=== PATIENT | male | born 1960 | race Caucasian/White ===

== ENCOUNTER → 2017-09-27 | Outpatient (CLI) | payer OTHER ==
[~2017-09-27] MED LIST: ASPI81TA21 PO; ATOR10TA82 PO; FISHOIL PO; GADAVIST IV PRN; Garlic PO; METO50TA8 PO; PANT40TA PO; PROBIOTIC PO; TAMS0.4C59 PO
--- NOTE | 2017-09-27 14:22 | DIAGNOSTIC IMAGING REPORT ---
MRA CHST SUBCLAV ANGIO COMBO CLINICAL HISTORY: ANEURYSM OF THORACIC AORTA aneurysm TECHNIQUE: MRI multi axial acquisition COMPARISON STUDY: 12/27/2011 FINDINGS: Interval median sternotomy and aortic valve replacement. Interval repair of the aneurysm of the a sending thoracic aorta. Accident current dimension is 3.3 cm diminished from the prior study of 4.4 cm. All remaining components of the thoracic aorta are negative for aneurysm or dissection. No evidence for cardiac enlargement. All remaining great vessels originating from the aortic arch are unremarkable. IMPRESSION: 1. Interval median sternotomy, aortic valve repair, as well as repair of the aneurysm of the aortic root. 2. No current evidence for aneurysm or dissection. 3. Maximum current diameter of the aortic root is 3.3 cm. The above report was generated using voice recognition software. It may contain grammatical, syntax or spelling errors. Electronically signed by: Jerman Gonzáles M.D. 09/27/2017 2:20 PM Dictated Date/Time: 09/27/2017 2:14 PM
== END | disposition home or self-care (01) ==
LOC: C.MRI 12:56
PROVIDERS: ATTEND Internal Medicine Cardiovascular Disease
DX: I71.2 Thoracic aortic aneurysm, without rupture (principal)

== ENCOUNTER 2023-11-24 05:59 | Inpatient (IN) ==
[2023-11-24] MEDS ORDERED: VANCOMYCIN CONSULT ACTIVE PRN ×2 (06:21→14:11)
[2023-11-24] MEDS: cefTRIAXone SODIUM 2,000 MG/50 ML BAG IV STA (06:30)
[2023-11-24 06:54] LABS: Basophils # (auto) 0.01 K/uL (0.00-0.20); Basophils % (auto) 0.2 %; Eosinophils # (auto) 0.04 K/uL (0.00-0.50); Eosinophils % (auto) 0.8 %; Hematocrit (blood only) 33.2 % (42.0-52.0); Hemoglobin 11.5 g/dl (14.0-18.0); Immature Granulocytes # (auto) 0.02 K/uL (0.01-0.20); Immature Granulocytes % (auto) 0.4 %; Lymphocytes # (auto) 0.82 K/uL (1.20-3.40); Lymphocytes % (auto) 16.3 %; Mean Corpuscular Hemoglobin 31.8 pg (25.0-34.0); Mean Corpuscular Hgb Conc 34.6 g/dL (32.0-36.0); Mean Corpuscular Volume 91.7 fL (80.0-100.0); Monocytes # (auto) 0.46 K/uL (0.11-0.59); Monocytes % (auto) 9.2 %; Neutrophils # (auto) 3.67 K/uL (1.40-6.50); Neutrophils % (auto) 73.1 %; Platelet Count 93 K/uL (130-400); RDW Coefficient of Variation 13.1 % (11.5-14.5); RDW Standard Deviation 44.4 fL (36.4-46.3); Red Blood Count 3.62 M/uL (4.70-6.10); White Blood Count 5.02 K/ul (4.8-10.8)
[2023-11-24 07:13] LABS: Albumin Globulin Ratio 1.7 (0.9-2); Albumin Level 3.8 gm/dl (3.4-5.0); BUN Creatinine Ratio 24.7 (10-20); Bilirubin,Total 1.6 mg/dl (0.2-1.0); Calcium 8.5 mg/dl (8.6-10.3); Creatinine Clr Calc Pharmacy 119.2 ml/min; Est GFR (African American) 109.6 ml/min; Est GFR (Non-African American) 94.6 ml/min; Globulin 2.3 gm/dl (2.5-4.0); Magnesium 1.5 mg/dl (1.7-2.4); Potassium 3.9 mmol/L (3.5-5.1); Total Protein 6.1 gm/dl (6.0-8.3)
--- NOTE | 2023-11-24 07:15 | XRay Report ---
XR chest 1V portable HISTORY: 63 years-old Male Chest pain, nonspecific COMPARISON: Chest radiograph 05/08/2023, chest CT 11/16/2023. TECHNIQUE: AP view of the chest FINDINGS: Cardiac silhouette is enlarged. Median sternotomy. Trace pleural effusion suggested. No pneumothorax. Pulmonary vascular congestion. Mild ill-defined patchy right lung airspace opacities. Bones appear g rossly intact. IMPRESSION: 1. Cardiomegaly with pulmonary vascular congestion. 2. Mild ill-defined right lung airspace opacities may represent asymmetric pulmonary edema versus mul tifocal pneumonia. 3. Trace pleural effusions. ACT 112: Negative or not required by law. The above report was generated using voice recognition software. It may contain grammatical, syntax o r spelling errors. Electronically signed by: Mehul Marcus M.D. 11/24/2023 7:14 AM
[2023-11-24 07:19] LABS: Troponin I High Sensitivity 44.7 pg/ml (0-20)
[2023-11-24] MEDS: VANCOMYCIN HCL 2,500 MG in SODIUM CHLORIDE 0.9% 500 ML IV ONE (07:19)
--- NOTE | 2023-11-24 07:33 | Emergency Department Note ---
Impression & Plan Bacteremia, Endocarditis ED Provider Note NAME: CHANELL FROST AGE: 63 SEX: M : 1960 ARRIVES VIA: Walk-In INFORMANT: Patient, ED PROVIDER(S): Jose Ashton MD CHIEF COMPLAINT: Positive blood cultures HPI: This is a 63-year-old male with history of bioprosthetic aortic valve, aortic stenosis, CHF, repaired ascending aortic aneurysm presenting for positive blood cultures. Patient recently followed with the [facility] with Dr. Stevens, cardiology, who requested blood cultures prior to aortic valve repair/replacement procedure to be done in the next couple weeks as per family. These blood cultures were positive as of yesterday and patient was advised to come to the ER by patient care associate, Dr. Farrell. Patient does note he feels weaker than usual, having occasional chills, no recorded fevers. He is stating that he is very active usually and this is different for him. He does note he recently can diagnosis CHF that his Lasix have not helping him. Patient have dental procedure recently with preoperative antibiotics. ROS: See above HPI for pertinent positives & negatives. A total of 10 systems reviewed and were otherwise negative. PHYSICAL EXAMINATION: General: resting comfortably in no acute distress Head: Normocephalic and atraumatic Eyes: Normal inspection, extraocular muscles intact Ear, nose, throat: Normal external exam Neck: Normal range of motion Respiratory: lungs clear to auscultation bilaterally Cardiovascular: Regular rate/rhythm, holosystolic murmur GI: soft, nontender, no guarding or rebound Extremities: nontender, moves all extremities Neuro: The patient awake and alert, appropriately conversive, no focal deficits, symmetric faces Skin: Warm, dry, and intact MEDICAL DECISION MAKING: This is a 63-year-old male history of bioprosthetic aortic valve, no stenosis, CHF presenting for blood cultures that are positive. Consider sepsis as well as endocarditis clinically as patient has severe aortic stenosis with bioprosthetic valve. Patient had recent dental procedure as well. -Blood work is reviewed showed no leukocytosis. No left disturbances. He does have a slight AST elevation greater than ALT elevation, troponin is elevated at 44. Pro-James is elevated at 2.87. -Otherwise patient already given broad-spectrum antibiotics, Vanco and Zosyn. -Discussed care with [facility], Dr Hill, who accepts the patient to his service for suspected bacteremia concerning for endocarditis with positive blood cultures -Currently there is no available bed at this facility and waiting on inpatient discharges prior to bed assignment. In addition this hospital is about a 4- hour/[address] by car making transportation likely fairly difficult -Discussed care with on-call hospitalist, Dr. Carranza who will admit the patient until bed/transportation to be arranged -Dr. Farrell was here who saw the patient at bedside and also spoke with patient's cardiology, Dr. Stevens who again reiterated need for patient to be at [facility]. Differential diagnosis: Bacteremia, endocarditis, viral pressure infection, pneumonia, CHF, PE ER treatment provided: See below Diagnostics interpreted by me: ECG: ECG independently interpreted by me with normal sinus rhythm, rate of 65, left axis deviation, normal [place],] manage blood, normal QTc, no ST segment elevations consistent with STEMI criteria Cardiac Monitoring: An order was placed for continuous cardiac monitoring. The monitor shows a rate of 57 with sinus rhythm. Laboratory studies: As stated above and show below. Imaging studies: See below. Past Med/Surg History Problem List (Updated 11/24/23 @ 14:10 by Jose Ashton MD) Endocarditis (Acute) Bacteremia (Acute) Elevated troponin Hypomagnesemia Multifocal pneumonia Streptococcal bacteremia Aneurysm of thoracic aorta REPAIR 2012 Heart failure due to valvular disease Aortic regurgitation Hematuria Hepatic steatosis Bladder outlet obstruction Abdominal pain SOB (shortness of breath) Dyspnea and respiratory abnormalities Anemia High grade dysplasia in colonic adenoma High grade dysplasia in colonic adenoma Decreased exercise tolerance Encounter for pre-operative examination Impaired glucose metabolism Rosacea Left ventricular hypertrophy Right bundle branch block Restless leg syndrome GERD (gastroesophageal reflux disease) Erectile dysfunction Aortic valve replaced (Chronic) Severe aortic stenosis Bradycardia H/O heart valve replacement with bioprosthetic valve S/P ascending aortic replacement 2013 Mitral regurgitation (Acute) Dyslipidemia Enlarged prostate with lower urinary tract symptoms (LUTS) (Acute) Hypertension Paroxysmal supraventricular tachycardia by electrocardiogram (ECG) (Acute) Patent foramen ovale (Acute) Medical History (Updated 11/24/23 @ 14:10 by Jose Ashton MD) On anticoagulant therapy eliquis bid History of COVID-2021--mild symptoms, no symptoms now Atrial fibrillation on eliquis/metoprolol--Dr. Bud Colon cancer screening Restless leg syndrome Leukopenia PCP MONITORING Allergic rhinitis Acid reflux Left rotator cuff tear hx Paroxysmal ventricular tachycardia Surgical History H/O colonoscopy with polypectomy History of cardiac cath 07/2012 @ [facility] prior to AVR History of esophagogastroduodenoscopy (EGD) [place] teeth removed S/P tonsillectomy H/O cystoscopy S/P LASIK surgery Family History Mother , age 78 Dementia Hypertension Parkinson disease Gallbladder disease Uncle Prostate cancer Brother Stomach cancer esophageal Brother , age 55 Tongue cancer Alcohol abuse Uncle Colorectal cancer Father , age 61 post gallbladder surgery Gallbladder disease Sister Aortic dissection Other No family history of adverse response to anesthesia Denies family history of Myocardial infarction Breast cancer Social History Smoking Status: Never smoker Second Hand Exposure: Yes ( A CHILD); Do You Dip or Chew Tobacco: No; Hx Alcohol Use: Yes Alcohol type: beer Alcohol Intake Frequency: Monthly or Less Alcohol Intake Frequency Comment: 1-2 times a week Hx Substance Use: No Preferred Language: Icelandic Communication Ability: Effective Visual Impairment: Limited Hearing Ability: Normal Fish Liver Sorter Required: No Beliefs That Will Affect Care: None marital status: Current Living Situation: Spouse current occupational status: retired 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 How many Children do You have: 0 Feels Safe at Home: Yes Childhood Exposure to Second-Hand Smoke: Yes Diet: low carbohydrate caffeine: Yes Dental Care, Regularly: Yes Physical Activity Frequency: 5-6 Times per Week Seatbelt Use: always Sunscreen Use: Yes (sometimes) Assistive Devices: Glasses Allergies Allergies Allergy/AdvReac Type Severity Reaction Status Date / Time No Known Allergies Allergy Verified 11/22/23 09:02 Home Meds Home Medications Medication Instructions Recorded Confirmed aspirin 81 mg tablet 81 mg PO QAM 02/11/19 11/24/23 Saccharomyces boulardii 250 mg 250 mg PO QAM 08/29/19 11/24/23 capsule (Daily Probiotic (S. boulardii)) cholecalciferol (vitamin D3) 25 25 mcg PO QAM 08/29/19 11/24/23 mcg (1,000 unit) capsule cyclobenzaprine 10 mg tablet 10 mg PO HS PRN Muscle Spasm 06/15/23 11/24/23 trazodone 50 mg tablet 50 mg PO DAILY PRN Pain 06/15/23 11/24/23 iron,carbonyl 65 mg-vitamin C 125 1 tab PO HS 11/01/23 11/24/23 mg tablet,delayed release (Vitron-C) finasteride 5 mg tablet 5 mg PO HS 11/06/23 11/24/23 Previous Rx's Medication Instructions Recorded sildenafil 100 mg tablet 100 mg PO UD PRN sexual activity 03/28/23 #20 tabs metoprolol succinate 50 mg 50 mg PO QAM #90 tabs 05/12/23 tablet,extended release 24 hr atorvastatin 10 mg tablet 10 mg PO HS #90 tabs 05/15/23 pantoprazole 40 mg tablet,delayed 40 mg PO QAM #90 tabs 05/15/23 release tamsulosin 0.4 mg capsule 0.4 mg PO QPM #90 caps 05/15/23 apixaban 5 mg tablet (Eliquis) 5 mg PO BID #60 tabs 11/02/23 furosemide 20 mg tablet 20 mg PO DAILY PRN #30 tabs 11/20/23 Results & Data (ED) Vital Signs Vital Signs - 24 hr 11/24/23 06:08 11/24/23 06:08 11/24/23 06:16 Temperature 36.8 C Temperature Source Oral Pulse Rate 65 67 66 Pulse Rate [Radial] Pulse Rate from SpO2 Sensor Respiratory Rate 29 H 23 Respiratory Effort / Characteristics Non-Labored Spontaneous Respiratory Depth Normal Respiratory Pattern Regular Blood Pressure 116/86 Blood Pressure [Left Arm] Blood Pressure Mean 96 Blood Pressure Mean [Left Arm] Pulse Oximetry 96 95 Oxygen Delivery Method Room Air Room Air Sepsis Recent Fever Within 48 Hours Yes Sepsis New/Unexplained Change in Mental Status No Sepsis Action Taken by Nursing No Action Required 11/24/23 06:33 11/24/23 06:50 11/24/23 07:00 Temperature 37.3 C Temperature Source Oral Pulse Rate 63 Pulse Rate [Radial] 63 62 Pulse Rate from SpO2 Sensor Respiratory Rate 20 18 22 Respiratory Effort / Characteristics Non-Labored Spontaneous Respiratory Depth Normal Respiratory Pattern Regular Blood Pressure Blood Pressure [Left Arm] 117/65 108/55 L Blood Pressure Mean Blood Pressure Mean [Left Arm] 82 72 Pulse Oximetry 95 94 Oxygen Delivery Method Room Air Room Air Sepsis Recent Fever Within 48 Hours Sepsis New/Unexplained Change in Mental Status Sepsis Action Taken by Nursing 11/24/23 07:00 11/24/23 07:10 11/24/23 07:10 Temperature Temperature Source Pulse Rate 62 Pulse Rate [Radial] Pulse Rate from SpO2 Sensor 62 Respiratory Rate 28 H Respiratory Effort / Characteristics Respiratory Depth Respiratory Pattern Blood Pressure 115/55 L 115/60 Blood Pressure [Left Arm] Blood Pressure Mean 80 70 Blood Pressure Mean [Left Arm] Pulse Oximetry 95 Oxygen Delivery Method Sepsis Recent Fever Within 48 Hours Sepsis New/Unexplained Change in Mental Status Sepsis Action Taken by Nursing 11/24/23 07:12 11/24/23 07:12 11/24/23 07:30 Temperature Temperature Source Pulse Rate 62 60 Pulse Rate [Radial] Pulse Rate from SpO2 Sensor 62 60 Respiratory Rate 29 H 23 Respiratory Effort / Characteristics Respiratory Depth Respiratory Pattern Blood Pressure 108/54 L Blood Pressure [Left Arm] Blood Pressure Mean 82 Blood Pressure Mean [Left Arm] Pulse Oximetry 96 96 Oxygen Delivery Method Sepsis Recent Fever Within 48 Hours Sepsis New/Unexplained Change in Mental Status Sepsis Action Taken by Nursing 11/24/23 08:00 11/24/23 08:00 11/24/23 08:07 Temperature Temperature Source Pulse Rate 61 64 Pulse Rate [Radial] 64 Pulse Rate from SpO2 Sensor 61 63 Respiratory Rate 15 21 30 H Respiratory Effort / Characteristics Non-Labored Spontaneous Respiratory Depth Normal Respiratory Pattern Blood Pressure Blood Pressure [Left Arm] 95/64 L Blood Pressure Mean Blood Pressure Mean [Left Arm] 74 Pulse Oximetry 93 92 96 Oxygen Delivery Method Room Air Sepsis Recent Fever Within 48 Hours Sepsis New/Unexplained Change in Mental Status Sepsis Action Taken by Nursing 11/24/23 08:07 11/24/23 08:30 11/24/23 08:30 Temperature Temperature Source Pulse Rate 61 Pulse Rate [Radial] Pulse Rate from SpO2 Sensor 62 Respiratory Rate 26 H Respiratory Effort / Characteristics Respiratory Depth Respiratory Pattern Blood Pressure 95/64 L 110/53 L Blood Pressure [Left Arm] Blood Pressure Mean 74 65 Blood Pressure Mean [Left Arm] Pulse Oximetry 96 Oxygen Delivery Method Sepsis Recent Fever Within 48 Hours Sepsis New/Unexplained Change in Mental Status Sepsis Action Taken by Nursing 11/24/23 09:00 11/24/23 09:00 11/24/23 09:30 Temperature Temperature Source Pulse Rate 62 63 Pulse Rate [Radial] Pulse Rate from SpO2 Sensor 63 61 Respiratory Rate 21 28 H Respiratory Effort / Characteristics Respiratory Depth Respiratory Pattern Blood Pressure 95/37 L 106/64 Blood Pressure [Left Arm] Blood Pressure Mean 51 78 Blood Pressure Mean [Left Arm] Pulse Oximetry 94 94 Oxygen Delivery Method Sepsis Recent Fever Within 48 Hours Sepsis New/Unexplained Change in Mental Status Sepsis Action Taken by Nursing 11/24/23 10:00 11/24/23 10:16 11/24/23 10:30 Temperature Temperature Source Pulse Rate 58 L 59 L Pulse Rate [Radial] Pulse Rate from SpO2 Sensor 58 L Respiratory Rate 27 H Respiratory Effort / Characteristics Respiratory Depth Respiratory Pattern Blood Pressure 100/54 L 103/48 L Blood Pressure [Left Arm] Blood Pressure Mean 69 59 Blood Pressure Mean [Left Arm] Pulse Oximetry 94 Oxygen Delivery Method Sepsis Recent Fever Within 48 Hours Sepsis New/Unexplained Change in Mental Status Sepsis Action Taken by Nursing 11/24/23 10:30 11/24/23 11:00 11/24/23 11:00 Temperature Temperature Source Pulse Rate 60 60 Pulse Rate [Radial] Pulse Rate from SpO2 Sensor 64 60 Respiratory Rate 24 33 H Respiratory Effort / Characteristics Respiratory Depth Respiratory Pattern Blood Pressure 112/59 L Blood Pressure [Left Arm] Blood Pressure Mean 72 Blood Pressure Mean [Left Arm] Pulse Oximetry 96 96 Oxygen Delivery Method Sepsis Recent Fever Within 48 Hours Sepsis New/Unexplained Change in Mental Status Sepsis Action Taken by Nursing 11/24/23 11:30 11/24/23 12:00 Temperature Temperature Source Pulse Rate 60 61 Pulse Rate [Radial] Pulse Rate from SpO2 Sensor 60 62 Respiratory Rate 27 H 24 Respiratory Effort / Characteristics Respiratory Depth Respiratory Pattern Blood Pressure 113/56 L 138/81 Blood Pressure [Left Arm] Blood Pressure Mean 75 100 Blood Pressure Mean [Left Arm] Pulse Oximetry 95 95 Oxygen Delivery Method Sepsis Recent Fever Within 48 Hours Sepsis New/Unexplained Change in Mental Status Sepsis Action Taken by Nursing Laboratory Data 11/24/23 06:15 11/24/23 06:15 Lab Results 11/24/23 11/24/23 11/24/23 Range/Units 06:15 06:56 07:49 WBC 5.02 (4.8-10.8) K/ul RBC 3.62 L (4.70-6.10) M/uL Hgb 11.5 L (14.0-18.0) g/dl Hct 33.2 L (42.0-52.0) % MCV 91.7 (80.0-100.0) fL MCH 31.8 (25.0-34.0) pg MCHC 34.6 (32.0-36.0) g/dL RDW Std Deviation 44.4 (36.4-46.3) fL RDW Coeff of Lizeth 13.1 (11.5-14.5) % Plt Count 93 L (130-400) K/uL Immature Gran % (Auto) 0.4 % Neut % (Auto) 73.1 % Lymph % (Auto) 16.3 % Gaston % (Auto) 9.2 % Eos % (Auto) 0.8 % Baso % (Auto) 0.2 % Neut # (Auto) 3.67 (1.40-6.50) K/uL Lymph # (Auto) 0.82 L (1.20-3.40) K/uL Gaston # (Auto) 0.46 (0.11-0.59) K/uL Eos # (Auto) 0.04 (0.00-0.50) K/uL Baso # (Auto) 0.01 (0.00-0.20) K/uL Immature Gran # (Auto) 0.02 (0.01-0.20) K/uL PT Cancelled 13.0 H INR Cancelled 1.2 H APTT Cancelled 31 PTT Ratio Cancelled 1.2 Sodium 135 L (136-145) mmol/L Potassium 3.9 (3.5-5.1) mmol/L Chloride 104 (98-107) mmol/L Carbon Dioxide 25 (21-32) mmol/L Anion Gap 6 (3-11) BUN 20 (6-23) mg/dl Creatinine 0.81 (0.6-1.4) mg/dl Est Cr Clr Drug Dosing 119.2 ml/min Est GFR ( Amer) 109.6 ml/min Est GFR (Non-Af Amer) 94.6 ml/min BUN/Creatinine Ratio 24.7 H (10-20) Glucose 103 H (70-99(Fasting)) mg/dl Lactate 0.7 (0.4-2.0) mmol/L Calcium 8.5 L (8.6-10.3) mg/dl Magnesium 1.5 L (1.7-2.4) mg/dl Total Bilirubin 1.6 H (0.2-1.0) mg/dl AST 72 H (13-39) U/L ALT 42 (7-52) U/L Alkaline Phosphatase 79 (34-104) U/L Troponin I High Sens 44.7 H (0-20) pg/ml Total Protein 6.1 (6.0-8.3) gm/dl Albumin 3.8 (3.4-5.0) gm/dl Globulin 2.3 L (2.5-4.0) gm/dl Albumin/Globulin Ratio 1.7 (0.9-2) Procalcitonin 2.87 H (0-0.5) ng/ml 11/24/23 Range/Units 09:37 WBC (4.8-10.8) K/ul RBC (4.70-6.10) M/uL Hgb (14.0-18.0) g/dl Hct (42.0-52.0) % MCV (80.0-100.0) fL MCH (25.0-34.0) pg MCHC (32.0-36.0) g/dL RDW Std Deviation (36.4-46.3) fL RDW Coeff of Lizeth (11.5-14.5) % Plt Count (130-400) K/uL Immature Gran % (Auto) % Neut % (Auto) % Lymph % (Auto) % Gaston % (Auto) % Eos % (Auto) % Baso % (Auto) % Neut # (Auto) (1.40-6.50) K/uL Lymph # (Auto) (1.20-3.40) K/uL Gaston # (Auto) (0.11-0.59) K/uL Eos # (Auto) (0.00-0.50) K/uL Baso # (Auto) (0.00-0.20) K/uL Immature Gran # (Auto) (0.01-0.20) K/uL PT INR APTT PTT Ratio Sodium (136-145) mmol/L Potassium (3.5-5.1) mmol/L Chloride (98-107) mmol/L Carbon Dioxide (21-32) mmol/L Anion Gap (3-11) BUN (6-23) mg/dl Creatinine (0.6-1.4) mg/dl Est Cr Clr Drug Dosing ml/min Est GFR ( Amer) ml/min Est GFR (Non-Af Amer) ml/min BUN/Creatinine Ratio (10-20) Glucose (70-99(Fasting)) mg/dl Lactate (0.4-2.0) mmol/L Calcium (8.6-10.3) mg/dl Magnesium (1.7-2.4) mg/dl Total Bilirubin (0.2-1.0) mg/dl AST (13-39) U/L ALT (7-52) U/L Alkaline Phosphatase (34-104) U/L Troponin I High Sens 41.1 H (0-20) pg/ml Total Protein (6.0-8.3) gm/dl Albumin (3.4-5.0) gm/dl Globulin (2.5-4.0) gm/dl Albumin/Globulin Ratio (0.9-2) Procalcitonin (0-0.5) ng/ml Administered Medications Magnesium Sulfate/Dextrose (Magnesium Sulfate / D5w) 1 gm in 100 mls @ 50 mls/hr IV Q2H JANET Stop: 11/24/23 17:14 Last Admin: 11/24/23 13:22 Dose: 50 mls/hr Documented By: MR Discontinued Medications Apixaban (Apixaban 5 Mg Tablet) 5 mg PO NOW ONE Stop: 11/24/23 12:40 Last Admin: 11/24/23 13:22 Dose: 5 mg Documented By: MR Aspirin (Aspirin 81 Mg Ectab) 81 mg PO NOW STA Stop: 11/24/23 12:39 Last Admin: 11/24/23 13:18 Dose: 81 mg Documented By: MR Vancomycin HCl 2,500 mg/ (Sodium Chloride) 550 mls @ 200 mls/hr IV NOW ONE Stop: 11/24/23 09:05 Last Infusion: 11/24/23 10:11 Dose: Infused Documented By: Admin: 11/24/23 07:19 Dose: 200 mls/hr Documented By: KHLOE Ceftriaxone Sodium (Rocephin) 2,000 mg in 50 mls @ 100 mls/hr IV NOW STA Stop: 11/24/23 06:50 Last Infusion: 11/24/23 06:53 Dose: Infused Documented By: Admin: 11/24/23 06:30 Dose: 100 mls/hr Documented By: [facility] Parenteral Electrolytes (Plasma-Lyte A Ph 7.4) 500 mls @ 999 mls/hr IV .Q31M ONE Stop: 11/24/23 13:26 Last Admin: 11/24/23 13:17 Dose: 999 mls/hr Documented By: MR Metoprolol Succinate (Metoprolol Succ 50mg Ext Rel Tab) 50 mg PO NOW STA Stop: 11/24/23 12:39 Last Admin: 11/24/23 13:47 Dose: Not Given Documented By: MES Metoprolol Succinate (Metoprolol Succ 50mg Ext Rel Tab) 25 mg PO NOW STA Stop: 11/24/23 12:46 Last Admin: 11/24/23 13:46 Dose: Not Given Documented By: MES Pantoprazole Sodium (Pantoprazole 40 Mg Tab) 40 mg PO NOW ONE Stop: 11/24/23 12:39 Last Admin: 11/24/23 13:18 Dose: 40 mg Documented By: MR Imaging Data Radiologist's Impression: Chest X-Ray 11/24/23 06:11 XR chest 1V portable HISTORY: 63 years-old Male Chest pain, nonspecific COMPARISON: Chest radiograph 05/08/2023, chest CT 11/16/2023. TECHNIQUE: AP view of the chest FINDINGS: Cardiac silhouette is enlarged. Median sternotomy. Trace pleural effusion suggested. No pneumothorax. Pulmonary vascular congestion. Mild ill-defined patchy right lung airspace opacities. Bones appear grossly intact. IMPRESSION: 1. Cardiomegaly with pulmonary vascular congestion. 2. Mild ill-defined right lung airspace opacities may represent asymmetric pulmonary edema versus multifocal pneumonia. 3. Trace pleural effusions. ACT 112: Negative or not required by law. The above report was generated using voice recognition software. It may contain grammatical, syntax or spelling errors. Electronically signed by: Mehul Marcus M.D. 11/24/2023 7:14 AM Discharge Plan Visit Data Chief Complaint: Cardiac Assessment Stated Complaint: CHILLS,SWEATY,LOW ENERGY,DOC REFER ED Provider: Jose Ashton Discharge Problem: Bacteremia, Endocarditis Patient Disposition: Admitted As Inpatient Discharge Instructions Interventions: ED Discharge Assessment Last Done: 11/24/23 13:45
[2023-11-24 08:28] LABS: INR 1.2 (0.9-1.1); Partial Thromboplastin Ratio 1.2; Partial Thromboplastin Time 31 Seconds (21-31)
--- NOTE | 2023-11-24 12:06 | History & Physical Report ---
Date of Service November 24, 2023 Assessment & Plan (1) Streptococcal bacteremia: Plan: Patient advised to come in by OR cardiology after positive blood cultures for (+) blood culture identifying gram-positive cocci in chains at 11/23 HX of AVR s/p bioprosthetic valve Patient is awaiting transfer to [facility] where he is seen by Dr. Stevens (Cardiology) No prior infection of his prostatic valve, or endocarditis Patient does report he had a dental cleaning on 11/14; pretreated with amoxicillin, but significant bleeding due to recently being placed on Eliquis for A-fib No leukocytosis, but patient does report he fever and chills the evening of 11/22 Lactate WNL; procalcitonin positive at 2.87 Vancomycin + ceftriaxone Continue vancomycin for enterococcus faecalis 500 cc IV bolus of Plasma-Lyte given due to hypotension in the ED; will defer further fluids as patient does exhibit heart failure due to valvular disease Acetaminophen as needed for pain/fever A.m. CBC, BMP, mag (2) Multifocal pneumonia: Plan: Clinically, patient endorses dry cough and fatigue CXR did reveal airspace opacities which could represent multifocal pneumonia Supplemental oxygen as needed to maintain SpO2 >94% Antibiotics (as above) (3) Heart failure due to valvular disease: Plan: Daily weights AHA, low-sodium diet Strict I&O monitoring (4) Anemia: Plan: Chronic; Hgb 11.5 on arrival No signs of active bleeding on clinical exam Continue to trend a.m. CBCs (5) Elevated troponin: Plan: Troponin 45--> 41 on arrival Clinically, patient denies chest pain/pressure or pleuritic CP, and is chest pain-free at time of admission Suspect demand ischemia over ACS Continuous telemetry monitoring (6) Hypomagnesemia: Plan: Mag 1.5 on arrival Magnesium sulfate 1gm x 2 Recheck am Mag (7) Aortic valve replaced: (8) Severe aortic stenosis: (9) H/O heart valve replacement with bioprosthetic valve: (10) S/P ascending aortic replacement: Plan Disposition: Admit to PCU telemetry Full code Awaiting transfer to [facility] AHA, low-sodium diet VTE PPx: On Eliquis History of Present Illness Chief Complaint: Cardiac Assessment Primary Care Provider: Bernabe Yanez MD Rodney is a 63-year-old male with PMH of AVR s/p bioprosthetic valve, HTN, dyslipidemia, GERD, restless leg syndrome, bladder outlet obstruction, hepatic steatosis, and heart failure due to valvular disease. He presented on 11/23 at the behest of metal or wood blocker Dr. Farrell for a positive blood culture drawn on 11/22. Patient endorses increased fatigue, SOB, and cough this past week. His SOB has been ongoing for 4 to 5 months, and is mainly with exertion, but more recently at rest as well. Patient is normally very active, but he noted that he could not push his lawnmower across the yard this week without stopping. He also endorses SOB when lying flat. He has had a dry cough this past week, but does have allergies and attributed to that. No hemoptysis, but some blood- tinged sneezing recently. Patient did not take his regular morning medications today; no recent change in medications, but he did take Lasix 20 mg 2 days ago for recent fluid buildup. Patient gained about 15 pounds in 2 days; he usually weighs about 220 to 225 pounds, but noticed weight gain, and believes it was secondary to heart failure in the setting of valvular disease (similar to past episode after his aortic aneurysm repair in 2012. No recent change in diet. Patient does not regularly eat foods with salts, but does not normally watch it for he drinks 1 cup of coffee per day. No prior history of bioprosthetic valve infection, endocarditis, AR, or DVT/PE. He was recently placed on Eliquis at the beginning of the month after a MACK for A-fib. Patient notes he did have a dental cleaning on 14 November. He had significant gum bleeding due to Eliquis, and had no prior dental cleanings on Eliquis. He did take amoxicillin prior to this dental cleaning. Patient denies smoking, alcohol use, recreational drug use, and IV drug use. ED coordinated transfer of patient with Dr. Stevens at [facility]. Patient is currently scheduled to be transferred to [facility], but is awaiting a bed. Patient is hypotensive at 100/54 and tachypneic at 27 RPM at time of admission. ED course: Vancomycin 2500 mg IV Rocephin 2000 g IV ROS: Patient endorses fever, chills, night-sweats, sinus congestion, mild MCCAIN, dry cough, SOB at rest and with exertion, orthopnea, nausea and vomiting (Monday night; resolved), intermittent diarrhea, and decreased urinary frequency (still producing urine). Patient denies chest pain, chest pressure, hemoptysis, dizziness, lightheadedness with walking/standing, hematemesis, change in urinary/bowel habits, burning with urination, blood in urine/stool, and numbness/tingling/swelling in arms or legs. Allergies Allergy/AdvReac Type Severity Reaction Status Date / Time No Known Allergies Allergy Verified 11/22/23 09:02 Home Medications Medication Instructions Recorded Confirmed Type aspirin 81 mg tablet 81 mg PO QAM 02/11/19 11/24/23 History Saccharomyces boulardii 250 mg 250 mg PO QAM 08/29/19 11/24/23 History capsule (Daily Probiotic (S. boulardii)) cholecalciferol (vitamin D3) 25 25 mcg PO QAM 08/29/19 11/24/23 History mcg (1,000 unit) capsule sildenafil 100 mg tablet 100 mg PO UD PRN sexual activity 03/28/23 11/24/23 Rx #20 tabs metoprolol succinate 50 mg 50 mg PO QAM #90 tabs 05/12/23 11/24/23 Rx tablet,extended release 24 hr atorvastatin 10 mg tablet 10 mg PO HS #90 tabs 05/15/23 11/24/23 Rx pantoprazole 40 mg tablet,delayed 40 mg PO QAM #90 tabs 05/15/23 11/24/23 Rx release tamsulosin 0.4 mg capsule 0.4 mg PO QPM #90 caps 05/15/23 11/24/23 Rx cyclobenzaprine 10 mg tablet 10 mg PO HS PRN Muscle Spasm 06/15/23 11/24/23 History trazodone 50 mg tablet 50 mg PO DAILY PRN Pain 06/15/23 11/24/23 History iron,carbonyl 65 mg-vitamin C 125 1 tab PO HS 11/01/23 11/24/23 History mg tablet,delayed release (Vitron-C) apixaban 5 mg tablet (Eliquis) 5 mg PO BID #60 tabs 11/02/23 11/24/23 Rx finasteride 5 mg tablet 5 mg PO HS 11/06/23 11/24/23 History furosemide 20 mg tablet 20 mg PO DAILY PRN #30 tabs 11/20/23 11/24/23 Rx Past Med/Surg History Problem List (Updated 11/24/23 @ 13:03 by Dominick France PA-C) Elevated troponin Hypomagnesemia Multifocal pneumonia Streptococcal bacteremia Aneurysm of thoracic aorta REPAIR 2012 Heart failure due to valvular disease Aortic regurgitation Hematuria Hepatic steatosis Bladder outlet obstruction Abdominal pain SOB (shortness of breath) Dyspnea and respiratory abnormalities Anemia High grade dysplasia in colonic adenoma High grade dysplasia in colonic adenoma Decreased exercise tolerance Encounter for pre-operative examination Impaired glucose metabolism Rosacea Left ventricular hypertrophy Right bundle branch block Restless leg syndrome GERD (gastroesophageal reflux disease) Erectile dysfunction Aortic valve replaced (Chronic) Severe aortic stenosis Bradycardia H/O heart valve replacement with bioprosthetic valve S/P ascending aortic replacement 2012 Mitral regurgitation (Acute) Dyslipidemia Enlarged prostate with lower urinary tract symptoms (LUTS) (Acute) Hypertension Paroxysmal supraventricular tachycardia by electrocardiogram (ECG) (Acute) Patent foramen ovale (Acute) Medical History (Updated 11/24/23 @ 13:03 by Dominick France PA-C) On anticoagulant therapy eliquis bid History of COVID-19 2021--mild symptoms, no symptoms now Atrial fibrillation on eliquis/metoprolol--Dr. Farrell Colon cancer screening Restless leg syndrome Leukopenia PCP MONITORING Allergic rhinitis Acid reflux Left rotator cuff tear hx Paroxysmal ventricular tachycardia Surgical History H/O colonoscopy with polypectomy History of cardiac cath 07/2012 @ [facility] prior to AVR History of esophagogastroduodenoscopy (EGD) [place] teeth removed S/P tonsillectomy H/O cystoscopy S/P LASIK surgery Family History Mother , age 78 Dementia Hypertension Parkinson disease Gallbladder disease Uncle Prostate cancer Brother Stomach cancer esophageal Brother , age 55 Tongue cancer Alcohol abuse Uncle Colorectal cancer Father , age 61 post gallbladder surgery Gallbladder disease Sister Aortic dissection Other No family history of adverse response to anesthesia Denies family history of Myocardial infarction Breast cancer Social History Smoking Status: Never smoker Second Hand Exposure: Yes ( A CHILD); Do You Dip or Chew Tobacco: No; Hx Alcohol Use: Yes Alcohol type: beer Alcohol Intake Frequency: Monthly or Less Alcohol Intake Frequency Comment: 1-2 times a week Hx Substance Use: No Preferred Language: Yoruba Communication Ability: Effective Visual Impairment: Limited Hearing Ability: Normal 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[employer] Sales Associate Required: No Beliefs That Will Affect Care: None marital status: Current Living Situation: Spouse current occupational status: retired 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 How many Children do You have: 0 Feels Safe at Home: Yes Childhood Exposure to Second-Hand Smoke: Yes Diet: low carbohydrate caffeine: Yes Dental Care, Regularly: Yes Physical Activity Frequency: 5-6 Times per Week Seatbelt Use: always Sunscreen Use: Yes (sometimes) Assistive Devices: Glasses Review of Systems Review of Systems: See HPI above Physical Exam Physical Exam: General: no acute distress; pleasant affect; non-toxic appearing; well- nourished; cooperative; SpO2 98% on room air HEENT: normocephalic, atraumatic; no scleral icterus; PERRLA w/ EOMs intact; moist mucus membrane; vision and hearing grossly intact Neck: supple; no lymphadenopathy; trachea midline Skin: warm, dry without signs of tenting; no cyanosis; no rashes, bruising, lesions, or erythema noted CV: chest wall NTP; RRR; S1/S2 normal; 4/6 systolic ejection murmur auscultated at the second ICS MCL; pulses intact and symmetric at radial, DP, and PT Lungs: no acute respiratory distress; symmetrical chest wall expansion; clear breath sounds across all lung beauchamp w/o adventitious sounds; no wheezing ABD: Soft, NTP; BS present; no rebound/guarding; no distention MSK: no tics or fasciculations; no edema noted in the LEs b/l, nonerythematous Neuro: A&Ox3; normal mood and affect; fluent speech; no focal deficits; sensation grossly intact in the LEs b/l Results & Data Results & Data Vital Signs (Past 12 Hours) Vital Signs Temp Pulse Pulse Resp BP BP Pulse Ox 11/24/23 10:16 59 L 11/24/23 10:00 58 L 27 H 100/54 L 94 11/24/23 09:30 63 28 H 106/64 94 11/24/23 09:00 62 21 94 11/24/23 09:00 95/37 L 11/24/23 08:30 110/53 L 11/24/23 08:30 61 26 H 96 11/24/23 08:07 95/64 L 11/24/23 08:07 64 30 H 96 11/24/23 08:00 61 21 92 11/24/23 08:00 64 15 95/64 L 93 11/24/23 07:30 60 23 96 11/24/23 07:12 62 29 H 96 11/24/23 07:12 108/54 L 11/24/23 07:10 62 28 H 95 11/24/23 07:10 115/60 11/24/23 07:00 115/55 L 11/24/23 07:00 63 22 11/24/23 06:50 37.3 C 62 18 108/55 L 94 11/24/23 06:33 63 20 117/65 95 11/24/23 06:16 66 23 95 11/24/23 06:08 67 11/24/23 06:08 36.8 C 65 29 H 116/86 96 O2 Del Method 11/24/23 10:16 11/24/23 10:00 11/24/23 09:30 11/24/23 09:00 11/24/23 09:00 11/24/23 08:30 11/24/23 08:30 11/24/23 08:07 11/24/23 08:07 11/24/23 08:00 11/24/23 08:00 Room Air 11/24/23 07:30 11/24/23 07:12 11/24/23 07:12 11/24/23 07:10 11/24/23 07:10 11/24/23 07:00 11/24/23 07:00 11/24/23 06:50 Room Air 11/24/23 06:33 Room Air 11/24/23 06:16 Room Air 11/24/23 06:08 11/24/23 06:08 Room Air Laboratory Results Abnormal lab results 11/24/23 11/24/23 11/24/23 Range/Units 06:15 07:49 09:37 RBC 3.62 L (4.70-6.10) M/uL Hgb 11.5 L (14.0-18.0) g/dl Hct 33.2 L (42.0-52.0) % Plt Count 93 L (130-400) K/uL Lymph # (Auto) 0.82 L (1.20-3.40) K/uL PT 13.0 H (9.0-12.0) Seconds INR 1.2 H (0.9-1.1) Sodium 135 L (136-145) mmol/L BUN/Creatinine Ratio 24.7 H (10-20) Glucose 103 H (70-99(Fasting)) mg/dl Calcium 8.5 L (8.6-10.3) mg/dl Magnesium 1.5 L (1.7-2.4) mg/dl Total Bilirubin 1.6 H (0.2-1.0) mg/dl AST 72 H (13-39) U/L Troponin I High Sens 44.7 H 41.1 H (0-20) pg/ml Globulin 2.3 L (2.5-4.0) gm/dl Procalcitonin 2.87 H (0-0.5) ng/ml Diagnostic Findings Chest X-Ray 11/24/23 06:11 XR chest 1V portable HISTORY: 63 years-old Male Chest pain, nonspecific COMPARISON: Chest radiograph 05/08/2023, chest CT 11/16/2023. TECHNIQUE: AP view of the chest FINDINGS: Cardiac silhouette is enlarged. Median sternotomy. Trace pleural effusion suggested. No pneumothorax. Pulmonary vascular congestion. Mild ill-defined patchy right lung airspace opacities. Bones appear grossly intact. IMPRESSION: 1. Cardiomegaly with pulmonary vascular congestion. 2. Mild ill-defined right lung airspace opacities may represent asymmetric pulmonary edema versus multifocal pneumonia. 3. Trace pleural effusions. ACT 112: Negative or not required by law. The above report was generated using voice recognition software. It may contain grammatical, syntax or spelling errors. Electronically signed by: Mehul Marcus M.D. 11/24/2023 7:14 AM ECG Additional Comments: ECG revealed sinus rhythm with first-degree AV block at 65 bpm; QTc 472 Code Status & VTE Plan Code Status Full code VTE Prophylaxis Plan VTE Prophylaxis will be ordered: Yes Supervising Physician Co-Signing Physician Notes Patient seen and examined, chart reviewed, case discussed with Dominick France PA-C and I agree with the assessment and plan as above except as otherwise noted Labs and images reviewed 63-year-old male with a past medical history of bioprosthetic AVR, hypertension, hyperlipidemia, GERD, bladder outlet obstruction, and heart failure who presents to the ER after cardiology was notified the patient had 2/2 positive blood cultures for gram-positive cocci in chains. Patient has had fevers and diaphoresis. At time of patient evaluation all 2/2 cultures with both aerobic and anaerobic bottles are positive for GPC in chains. Chest x-ray shows ill- defined lung opacities which may represent asymmetric pulmonary edema however may also represent multifocal pneumonia. He does not have a leukocytosis however does have an elevated procalcitonin consistent with pneumonia versus bacteremia. Continue Rocephin with vancomycin for enterococcal coverage. Patient has a history of bioprosthetic aortic valve, repaired ascending aortic aneurysm and has been following with [facility] as he is pending an aortic valve repair/replacement in the next few weeks. His case was discussed with [facility] while in the ER and due to this was accepted for transfer however due to high census and no bed availability no timeline is available. Patient has been accepted by Dr. Stevens;bed availability is not anticipated for at least the next 12-24 hours and patient is recommended for medical admission and management pending his transfer. He is initially hypotensive and tachycardic in the ER, BP is normal on reassessment time of hospitalist consultation. His last EF was 65 to 70%, and echo 06/2023 did not show any evidence of diastolic dysfunction or CHF. Clinically he has had exertional dyspnea and weight retention which have improved with Lasix as outpatient. Due to initial hypotension and lack of pulmonary edema will give 500 cc of Plasma- Lyte; as patient does have some pulmonary vascular congestion and does not have an elevated lactate and now has normal hemodynamics on reassessment will defer 2590 cc sepsis protocol fluids. Rebolus as clinically indicated. Magnesium and potassium supplementation have been ordered to optimize to goal of 2.0/4.0. He does not have leukocytosis. Agree with assessment and management above PG Care Time/CCT Total # of Minutes Spent Total Time Spent with Patient: Total time spent is greater than 50% in coordination of care (as documented) at patient's floor/unit and/or counseling patient: [place] [address] INT INP/OBS CARE 3/75MIN Patient Type New History Comprehensive Exam Comprehensive Medical Decision Making High Complexity Diagnoses Streptococcal bacteremia R78.81; B95.5 Multifocal pneumonia J18.9 Heart failure due to valvular disease I50.9; I38 Anemia D64.9 Elevated troponin R79.89 Hypomagnesemia E83.42 Aortic valve replaced Z95.2 Severe aortic stenosis I35.0 H/O heart valve replacement with bioprosthetic valve Z95.3 S/P ascending aortic replacement Z95.828
--- NOTE | 2023-11-24 13:08 | Electrocardiogram Report ---
Test Reason : Blood Pressure : / mmHG Vent. Rate : 065 BPM Atrial Rate : 065 BPM P-R Int : 220 ms QRS Dur : 138 ms QT Int : 454 ms P-R-T Axes : 055 -43 -54 degrees QTc Int : 472 ms Sinus rhythm with 1st degree A-V block Left axis deviation Right bundle branch block Abnormal ECG When compared with ECG of 08-NOV-2023 08:10, Premature atrial complexes are no longer Present Right bundle branch block has replaced Non-specific intra-ventricular conduction block Confirmed by Amado Veliz ([id number]) on 11/24/2023 1:08:28 PM Referred By: Bernabe Yanez Confirmed By:Amado Veliz
[2023-11-24] MEDS: PLASMA-LYTE A 500 ML IV ONE (13:17)
[2023-11-24] MEDS: PANTOprazole 40 MG TAB PO ONE (13:18)
[2023-11-24] MEDS: ASPIRIN 81 MG ECTAB PO STA (13:18)
[2023-11-24] MEDS: MAGNESIUM SULFATE / D5W 1 GM/100 ML BAG IV SCH (13:22)
[2023-11-24] MEDS: APIXABAN 5 MG TABLET PO ONE (13:22)
[2023-11-24] MEDS: METOPROLOL SUCC 50MG EXT REL TAB PO STA ×2 (13:46→13:47)
[2023-11-24] MEDS ORDERED: ACETAMINOPHEN 325 MG TAB PO PRN (14:11)
[2023-11-24] MEDS ORDERED: CYCLOBENZAPRINE HCL 10 MG TAB PO PRN (14:11)
[2023-11-24] MEDS ORDERED: ONDANSETRON INJ 2 MG/ML 2 ML VIAL IV PRN (14:11)
--- NOTE | 2023-11-24 15:20 | Pharmacy Report ---
Pharmacy PK ABX Note - Date of Service November 24, 2023 - Assessment and Plan Assessment 63 year old M receiving vancomycin and ceftriaxone for treatment of bacteremia/possible endocarditis. 11/22 Blood cultures (+) GPC in chains in 10/04. Blood biofire (+) Strep spp. Recommended ID consult, ceftriaxone +/- gent based upon blood biofire PCR data. Awaiting transfer to [facility]. Renal function stable. Day # 1 of antimicrobial therapy. Plan Vancomycin * Loading dose: 2500 mg IV x 1 * Maintenance dose: 1500 mg IV every 12 hours * Regimen is predicted to achieve target AUC/CHRISTEL of 400-600 mg/L.hr * Will obtain a level around steady state if vancomycin continued. Pharmacy will continue to follow and will adjust dose/frequency as necessary. Thank you. Pharmacy has transitioned to AUC monitoring for vancomycin. AUC/CHRISTEL is the preferred PK/PD target and is associated with decreased risk of nephrotoxicity compared to traditional trough targets.
[2023-11-24] MEDS: VANCOMYCIN HCL 1,500 MG in SODIUM CHLORIDE 0.9% 500 ML IV SCH (16:52)
[2023-11-24] MEDS: APIXABAN 5 MG TABLET PO SCH (20:47)
[2023-11-24] MEDS: TAMSULOSIN HCL 0.4 MG CAP PO SCH (20:48)
[2023-11-24] MEDS: FINASTERIDE 5 MG TAB PO SCH (20:48)
[2023-11-24] MEDS: ATORVASTATIN 10 MG TAB PO SCH (20:48)
[2023-11-24 22:30] LABS: A calco-baum cmplx NotReported Not Detected (NotDetected); Bact fragilis Not Reported Not Detected (NotDetected); Blood Culture Id Panel See PCR Comment (NotDetected); C auris Not Reported Not Detected (NotDetected); Calbicans Not Reported Not Detected (NotDetected); Candida glabrata Not Reported Not Detected (NotDetected); Candida krusei Not Reported Not Detected (NotDetected); Cneoformans/gatti Not Reported Not Detected (NotDetected); Cparapsilosis Not Reported Not Detected (NotDetected); E cloacae compx Not Reported Not Detected (NotDetected); Efaecalis Not Reported Not Detected (NotDetected); Efaecium Not Reported Not Detected (NotDetected); Enterobacterales Not Reported Not Detected (NotDetected); Escherichia coli Not Reported Not Detected (NotDetected); H influenzae Not Reported Not Detected (NotDetected); K aerogenes Not Reported Not Detected (NotDetected); Koxytoca Not Reported Not Detected (NotDetected); Kpneumoniae grp Not Reported Not Detected (NotDetected); Lmonocyt Not Reported Not Detected (NotDetected); N meningitidis Not Reported Not Detected (NotDetected); P aeruginosa Not Reported Not Detected (NotDetected); Proteus spp Not Reported Not Detected (NotDetected); Salmonella spp Not Reported Not Detected (NotDetected); Smarcescens Not Reported Not Detected (NotDetected); Staph lugdunensis Not Reported Not Detected (NotDetected); Staph spp. Not Reported Not Detected (NotDetected); Staphaureus Not Reported Not Detected (NotDetected); Staphepi Not Reported Not Detected (NotDetected); Stenmaltophilia Not Reported Not Detected (NotDetected); Strep agal(GrpB) Not Reported Not Detected (NotDetected); Strep pneum Not Reported Not Detected (NotDetected); Strep pyog (GrpA) Not Reported Not Detected (NotDetected); Strep spp Not Reported DETECTED (NotDetected)
[2023-11-24 23:14] LABS: Streptococcus spp DETECTED (NotDetected)
[2023-11-25] MEDS: cefTRIAXone SODIUM 2,000 MG/50 ML BAG IV SCH (05:36)
[2023-11-25 06:57] LABS: Basophils # (auto) 0.01 K/uL (0.00-0.20); Basophils % (auto) 0.2 %; Eosinophils # (auto) 0.09 K/uL (0.00-0.50); Eosinophils % (auto) 1.9 %; Hematocrit (blood only) 33.8 % (42.0-52.0); Hemoglobin 11.4 g/dl (14.0-18.0); Immature Granulocytes # (auto) 0.02 K/uL (0.01-0.20); Immature Granulocytes % (auto) 0.4 %; Lymphocytes # (auto) 1.25 K/uL (1.20-3.40); Lymphocytes % (auto) 27.1 %; Mean Corpuscular Hemoglobin 31.4 pg (25.0-34.0); Mean Corpuscular Hgb Conc 33.7 g/dL (32.0-36.0); Mean Corpuscular Volume 93.1 fL (80.0-100.0); Monocytes # (auto) 0.45 K/uL (0.11-0.59); Monocytes % (auto) 9.7 %; Neutrophils % (auto) 60.7 %; Platelet Count 102 K/uL (130-400); RDW Coefficient of Variation 13.1 % (11.5-14.5); RDW Standard Deviation 45.1 fL (36.4-46.3); Red Blood Count 3.63 M/uL (4.70-6.10); White Blood Count 4.62 K/ul (4.8-10.8)
[2023-11-25 07:25] LABS: BUN Creatinine Ratio 16.5 (10-20); Calcium 8.3 mg/dl (8.6-10.3); Creatinine Clr Calc Pharmacy 120.8 ml/min; Est GFR (African American) 110.8 ml/min; Est GFR (Non-African American) 95.6 ml/min; Magnesium 1.7 mg/dl (1.7-2.4)
[2023-11-25] MEDS: ASPIRIN 81 MG ECTAB PO SCH (08:38)
[2023-11-25] MEDS: METOPROLOL SUCC 50MG EXT REL TAB PO SCH (08:38)
[2023-11-25] MEDS: PANTOprazole 40 MG TAB PO SCH (08:38)
--- NOTE | 2023-11-25 17:57 | Discharge Summary ---
Discharge Summary Date of Service November 25, 2023 Notes For Next Care Provider Patient with feeling bioprosthetic aortic valve and now streptococcal bacteremia. Patient was previously in [facility] on 11/21/2023 to coordinate valve replacement surgery in the interim developed symptoms consistent with endocarditis and now persistently problem positive blood cultures. Patient was accepted to [facility] for transfer however difficulties with procuring [id number] transportation by EMS was had. Claimant was asked to send transport team but they cannot secure team to bring the patient. Subsequently the patient and his decided to sign out AGAINST MEDICAL ADVICE and transport himself to the [facility]. They understand the risks of travel including aortic dissection rupture and . He did receive his antibiotics around 6 AM both cefepime and vancomycin. He is due for an afternoon dose of vancomycin around 5 to 6 PM. Patient was given all records and discs distending with him to [facility]. Prior to him going to [facility] I did discuss the case with the on-call physician there. They did recommend against the patient traveling by private vehicle however the patient signed AMA under the their own free will to do so Admission HPI Per Admitting Provider Rodney is a 63-year-old male with PMH of AVR s/p bioprosthetic valve, HTN, dyslipidemia, GERD, restless leg syndrome, bladder outlet obstruction, hepatic steatosis, and heart failure due to valvular disease. 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 Farrell for a positive blood culture drawn on 11/22. Patient endorses increased fatigue, SOB, and cough this past week. His SOB has been ongoing for 4 to 5 months, and is mainly with exertion, but more recently at rest as well. Patient is normally very active, but he noted that he could not push his lawnmower across the yard this week without stopping. He also endorses SOB when lying flat. He has had a dry cough this past week, but does have allergies and attributed to that. No hemoptysis, but some blood- tinged sneezing recently. Patient did not take his regular morning medications today; no recent change in medications, but he did take Lasix 20 mg 2 days ago for recent fluid buildup. Patient gained about 15 pounds in 2 days; he usually weighs about 220 to 225 pounds, but noticed weight gain, and believes it was secondary to heart failure in the setting of valvular disease (similar to past episode after his aortic aneurysm repair in 2012. No recent change in diet. Patient does not regularly eat foods with salts, but does not normally watch it for he drinks 1 cup of coffee per day. No prior history of bioprosthetic valve infection, endocarditis, FL, or DVT/PE. He was recently placed on Eliquis at the beginning of the month after a MACK for A-fib. Patient notes he did have a dental cleaning on 14 November. He had significant gum bleeding due to Eliquis, and had no prior dental cleanings on Eliquis. He did take amoxicillin prior to this dental cleaning. Patient denies smoking, alcohol use, recreational drug use, and IV drug use. ED coordinated transfer of patient with Dr. Stevens at [facility]. Patient is currently scheduled to be transferred to [facility], but is awaiting a bed. Patient is hypotensive at 100/54 and tachypneic at 27 RPM at time of admission. ED course: Vancomycin 2500 mg IV Rocephin 2000 g IV ROS: Patient endorses fever, chills, night-sweats, sinus congestion, mild [place], dry cough, SOB at rest and with exertion, orthopnea, nausea and vomiting (Monday night; resolved), intermittent diarrhea, and decreased urinary frequency (still producing urine). Patient denies chest pain, chest pressure, hemoptysis, dizziness, lightheadedness with walking/standing, hematemesis, change in urinary/bowel habits, burning with urination, blood in urine/stool, and numbness/tingling/swelling in arms or legs. Principal Dx & Hospital Course #1 = Principal Diagnosis (1) Streptococcal bacteremia: Patient advised to come in by [facility]ology after positive blood cultures for (+) blood culture identifying gram-positive cocci in chains at 11/23 HX of AVR s/p bioprosthetic valve Patient is awaiting transfer to [facility] where he is seen by Dr. Stevens (Cardiology) Dr. Ordonez was also spoken to on 11/25/2023 No prior infection of his prostatic valve, or endocarditis Patient does report he had a dental cleaning on 11/14; pretreated with amoxicillin, but significant bleeding due to recently being placed on Eliquis for A-fib No leukocytosis, but patient does report he fever and chills the evening of 11/22 Lactate WNL; procalcitonin positive at 2.87 Vancomycin + ceftriaxone both doses were given in the early a.m. hours 5 to 6 AM on 11/25/2023 Preliminary this is a strep species speciation and identification are not defined at this time (2) Heart failure due to valvular disease: Chronic diastolic heart failure secondary to failing aortic valve (3) Anemia: Chronic; Hgb 11.5 on arrival No signs of active bleeding on clinical exam Continue to trend a.m. CBCs (4) Elevated troponin: Troponin 45--> 41 on arrival no signs of ACS suspected and ischemia (5) Hypomagnesemia: Replete Plan Patient signed out AMA to self transport himself to [facility] Discharge Exam Patient awake alert appropriate. No peripheral stigmata of endocarditis there is no splinter hemorrhages or tender nodules on his hands. Does have slightly very low rumbling systolic murmur consistent with his failing aortic valve and most prominent on his right sternal border. Lungs are clear without exhibiting signs of the described possible pneumonia and the patient has no clinical symptoms of cough or shortness of breath. Patient is without peripheral edema. Updated Medication List Medication Instructions Recorded Confirmed Type aspirin 81 mg tablet 81 mg PO QAM 02/11/19 11/24/23 History Saccharomyces boulardii 250 mg 250 mg PO QAM 08/29/19 11/24/23 History capsule (Daily Probiotic (S. boulardii)) cholecalciferol (vitamin D3) 25 25 mcg PO QAM 08/29/19 11/24/23 History mcg (1,000 unit) capsule sildenafil 100 mg tablet 100 mg PO UD PRN sexual activity 03/28/23 11/24/23 Rx #20 tabs metoprolol succinate 50 mg 50 mg PO QAM #90 tabs 05/12/23 11/24/23 Rx tablet,extended release 24 hr atorvastatin 10 mg tablet 10 mg PO HS #90 tabs 05/15/23 11/24/23 Rx pantoprazole 40 mg tablet,delayed 40 mg PO QAM #90 tabs 05/15/23 11/24/23 Rx release tamsulosin 0.4 mg capsule 0.4 mg PO QPM #90 caps 05/15/23 11/24/23 Rx cyclobenzaprine 10 mg tablet 10 mg PO HS PRN Muscle Spasm 06/15/23 11/24/23 History trazodone 50 mg tablet 50 mg PO DAILY PRN Pain 06/15/23 11/24/23 History iron,carbonyl 65 mg-vitamin C 125 1 tab PO HS 11/01/23 11/24/23 History mg tablet,delayed release (Vitron-C) apixaban 5 mg tablet (Eliquis) 5 mg PO BID #60 tabs 11/02/23 11/24/23 Rx finasteride 5 mg tablet 5 mg PO HS 11/06/23 11/24/23 History furosemide 20 mg tablet 20 mg PO DAILY PRN #30 tabs 11/20/23 11/24/23 Rx Hospital Stay Data Consultations 11/24/23 13:48 ED Decision to Admit Stat 11/24/23 17:29 Burn CD for patient Stat Pending Results Patient Have Any Pending Studies at Discharge: Yes Discharge Instructions Given to Patient (Per Discharging Provider) you are being transfered to [facility] for definitive treatment of your bacteremia in regard to your aortic valve replacement Total Time Total Time Spent Total Time Spent (In Minutes): It required greater than 30 minutes to prepare this patient for discharge. Coding Level of Care Code 93004 INP/OBS DISCH >30 MIN Diagnoses Streptococcal bacteremia R78.81; B95.5 Heart failure due to valvular disease I50.9; I38 Anemia D64.9 Elevated troponin R79.89 Hypomagnesemia E83.42
[2023-11-26] MEDS ORDERED: VANCOMYCIN LEVEL ONE (04:30)
== END 2023-11-25 12:45 | disposition left against medical advice (07) | DRG 872 ==
LOC: ED 05:59 → SUATTDRO 12:44 → 2S 12:44